=== PATIENT | male | born 1975 | race Caucasian/White ===

== ENCOUNTER 2022-11-02 10:57 | Outpatient (CLI) | payer OTHER | END 2022-11-02 11:00 | disposition home or self-care (01) | LOC: RAD 10:57 | PROVIDERS: ATTEND Physical Medicine & Rehabilitation | DX: M17.11 Unilateral primary osteoarthritis, right knee (principal); M17.12 Unilateral primary osteoarthritis, left knee; M54.2 Cervicalgia ==

== ENCOUNTER 2023-04-17 09:09 | Outpatient (CLI) | payer OTHER | END 2023-04-17 12:31 | disposition home or self-care (01) | LOC: SONOGRAMA 09:09 | DX: R22.31 Localized swelling, mass and lump, right upper limb (principal) ==

== ENCOUNTER 2023-06-06 14:42 | Outpatient (CLI) | payer OTHER | END 2023-06-06 14:53 | disposition home or self-care (01) | LOC: TOM 14:42 | DX: M54.50 Low back pain, unspecified (principal) ==

== ENCOUNTER → 2024-12-09 | Emergency (ER) | payer OTHER ==
[~2024-12-09] VITALS: Ht 170.2 cm; Wt 128.4 kg
[~2024-12-09] MED LIST: FAMOTIDINE/PF 20 MG in 0.9 % SODIUM CHLORIDE 8 ML IV PUSH STA; FAMOTIDINE/PF 20 MG/2 ML VIAL ONE; HYOSCYAMINE SULFATE 0.125 MG TAB.SUBL ONE; HYOSCYAMINE SULFATE 0.125 MG TAB.SUBL SL ONE; LASIX20 MG PO; SODIUM CHLORIDE 0.45 % 500 ML IV ONE; ZESTRIL10 M1 PO
[2024-12-09 15:24] VITALS: BP 110/67; O2SAT 98
== END | disposition left against medical advice (07) ==
LOC: ER 14:39
DX: R19.7 Diarrhea, unspecified (principal); R10.9 Unspecified abdominal pain; I10 Essential (primary) hypertension; Z88.8 Allergy status to other drugs, medicaments and biological substances; Z91.013 Allergy to seafood